=== PATIENT | male | born 1940 | race African-American/Black ===

== ENCOUNTER 2018-05-29 12:36 | Observation (INO) ==
[2018-05-29] MEDS ORDERED: SODIUM CHLORIDE 0.9% 500 ML IV STA (12:54)
[2018-05-29 13:57] LABS: Basophils % 0.1 % (0.0-0.8); Hematocrit 25.6 VOL% (42.0-52.0); Hemoglobin 8.7 GM/DL (14.0-18.0); Immature Granulocytes % 0.6 %; Immature Granulocytes Absolute 0.05 #; Lymphocytes # 1.3 10*3/uL (1.4-4.0); Lymphocytes % 15.9 % (21.2-54.2); Mean Corpuscular Hemoglobin 32 PG (27-34); Mean Corpuscular Volume 93.1 FL (87-102); Mean Platelet Volume 9.2 FL (9.6-12.0); Monocytes # 0.3 10*3/uL (0.11-0.8); Monocytes % 3.9 % (1.7-12.7); Neutrophils # 6.4 10*3/uL (1.4-7.4); Neutrophils % 79.5 % (38.7-73.9); Platelet Count 409 T/CUMM (130-400); Red Blood Count 2.75 MC/CUMM (3.8-5.5); Red Cell Distribution Width 26.5 % (9.3-17.3)
[2018-05-29 14:05] LABS: PT Patient Result 10.6 SECS; Partial Thromboplastin Time 27.1 SECS (0-40)
[2018-05-29 14:09] LABS: Barbiturates Screen,Urine Negative (Negative); Benzodiazepines Screen,Urine Negative (Negative); Cannabinoid Screen,Urine Negative (Negative); Opiate Screen,Urine Positive (Negative); Phencyclidine Screen,Urine Negative (Negative)
[2018-05-29 14:17] LABS: Apearance,Urine CLEAR (Clear); Bacteria,Urine Occasional /HPF (Few); Bilirubin,Urine Negative (Negative); Blood, Urine Negative (Negative); Glucose,Urine (UA) Negative (Negative); Ketones,Urine 5 mg/dL (Negative); Mucus,Urine Occasional /LPF (Occasional); Nitrite,Urine Positive (Negative); Protein,Urine Negative; RBC,Urine <1 /HPF (0-4); Squamous Epithelial Cell,Urine Occasional /HPF (0-10); Urine Color Yellow (Yellow); Urine Specific Gravity 1.008 (1.001-1.035); Urine Urobilinogen < 2.0 EU/DL (0.2-1.0); WBC,Urine 7 /HPF (0-6)
[2018-05-29 14:18] LABS: Alanine Aminotransferase 41 U/L (16-61); Albumin 2.4 G/DL (3.4-5.0); Alkaline Phosphatase 151 U/L (45-117); Aspartate Amino Transferase 60 U/L (0-37); Blood Urea Nitrogen 7 MG/DL (7-18); Calcium 7.6 MG/DL (8.5-10.1); Glucose 91 MG/DL (74-106); Sodium 137 MMOL/L (136-145); Total Protein 6.5 G/DL (6.4-8.3)
[2018-05-29 14:19] LABS: Osmolality,Calculated 270.8 MOS/KG (273-304); Troponin I Only 0.027 NG/ML (0.00-0.045)
[2018-05-29] MEDS ORDERED: POTASSIUM BICARB EFFERVESCENT 25 MEQ TABLET PO ONE (14:26)
[2018-05-29] MEDS ORDERED: LEVOFLOXACIN INJ 750 MG in PREMIX 1 EACH IV STA (14:26)
[2018-05-29 14:55] LABS: Anisocytosis 1+
[2018-05-29 14:56] LABS: Platelet Estimate Adequate; Stomatocytes Few
[2018-05-29] MEDS ORDERED: ONDANSETRON 4 MG/2 ML VIAL IV PRN (15:25)
[2018-05-29] MEDS ORDERED: GLUCAGON 1 MG VIAL IM PRN (15:25)
[2018-05-29] MEDS ORDERED: DEXTROSE 50% 25 GM/50 ML VIAL IV PRN (15:25)
[2018-05-29] MEDS ORDERED: NICOTINE 21 MG/24 HR PATCH TRANSDERM PRN (15:25)
[2018-05-29] MEDS ORDERED: HALOPERIDOL 5 MG/ML AMP ONE (15:43)
[2018-05-29] MEDS ORDERED: HALOPERIDOL 5 MG/ML AMP IM STA ×2 (15:59→16:47)
[2018-05-29 17:16] LABS: Thyroid Stimulating Hormone 0.346 uIU/ml (0.358-3.74)
[2018-05-29] MEDS ORDERED: POTASSIUM CHLORIDE 20 MEQ TABLET PO ONE (18:00)
[2018-05-29] MEDS: cloNIDine 0.1 MG TABLET PO SCH ×2 (18:48→21:14)
[2018-05-29] MEDS: glipiZIDE 10 MG TABLET PO SCH (18:48)
[2018-05-29] MEDS: SODIUM CHLORIDE 0.9% 1,000 ML IV SCH (18:48)
[2018-05-29] MEDS: INSULIN LISPRO 100 UNIT/ML SUBCUT SCH ×2 (18:52→21:19)
[2018-05-29] MEDS ORDERED: HALOPERIDOL 5 MG/ML AMP IV PRN (19:05)
[2018-05-29] MEDS: MEGESTROL 40 MG TABLET PO SCH (21:14)
[2018-05-29] MEDS: hydroCHLOROthiazide 12.5 MG CAPSULE PO SCH (21:15)
[2018-05-29] MEDS: DICLOFENAC 1% GEL 100 GM TUBE TOP SCH (21:19)
[2018-05-29] MEDS: POTASSIUM CHLORIDE 20 MEQ TABLET PO SCH (23:35)
[2018-05-30] MEDS: ACETAMINOPHEN 325 MG TABLET PO PRN ×2 (04:35→18:02)
[2018-05-30 04:55] LABS: Hemoglobin 9.6 GM/DL (14.0-18.0); Immature Granulocytes % 0.5 %; Immature Granulocytes Absolute 0.05 #; Lymphocytes # 1.4 10*3/uL (1.4-4.0); Lymphocytes % 15.3 % (21.2-54.2); Mean Corpuscular HGB Conc 34.3 GM/DL (32-36); Mean Corpuscular Hemoglobin 32 PG (27-34); Mean Corpuscular Volume 92.1 FL (87-102); Mean Platelet Volume 9.7 FL (9.6-12.0); Monocytes # 0.6 10*3/uL (0.11-0.8); Monocytes % 6.6 % (1.7-12.7); Neutrophils # 7.1 10*3/uL (1.4-7.4); Neutrophils % 77.6 % (38.7-73.9); Platelet Count 413 T/CUMM (130-400); Red Blood Count 3.04 MC/CUMM (3.8-5.5); Red Cell Distribution Width 25.7 % (9.3-17.3); White Blood Count 9.1 T/CUMM (4-12)
[2018-05-30 05:34] LABS: Osmolality,Calculated 263.1 MOS/KG (273-304); Potassium 4.4 MMOL/L (3.5-5.1)
[2018-05-30] MEDS ORDERED: TUBERCULIN SKIN TEST 0.1 ML SYRINGE INTRADERM ONE ×2 (08:02→09:00)
[2018-05-30] MEDS: glipiZIDE 10 MG TABLET PO SCH (08:42)
[2018-05-30] MEDS: SODIUM CHLORIDE 0.9% 1,000 ML IV SCH ×2 (08:43→18:01)
[2018-05-30] MEDS: cefTRIAXone 1,000 MG in SYRINGE 1 EACH IV SCH (08:43)
[2018-05-30] MEDS: DICLOFENAC 1% GEL 100 GM TUBE TOP SCH ×4 (08:43→21:51)
[2018-05-30] MEDS: SIMVASTATIN 80 MG TABLET PO SCH (08:44)
[2018-05-30] MEDS: DILTIAZEM CD 180 MG CAPSULE PO SCH (08:44)
[2018-05-30] MEDS: FOLIC ACID 1 MG TABLET PO SCH (08:44)
[2018-05-30] MEDS: CLOPIDOGREL 75 MG TABLET PO SCH (08:45)
[2018-05-30] MEDS: TAMSULOSIN 0.4 MG CAPSULE PO SCH (08:45)
[2018-05-30] MEDS: hydroCHLOROthiazide 12.5 MG CAPSULE PO SCH ×2 (08:45→21:49)
[2018-05-30] MEDS: cloNIDine 0.1 MG TABLET PO SCH ×4 (08:45→21:49)
[2018-05-30] MEDS: POTASSIUM CHLORIDE 20 MEQ TABLET PO SCH (08:51)
[2018-05-30] MEDS: MEGESTROL 40 MG TABLET PO SCH ×2 (08:54→21:49)
[2018-05-30] MEDS: INSULIN LISPRO 100 UNIT/ML SUBCUT SCH ×4 (09:41→20:42)
[2018-05-30] MEDS ORDERED: HALOPERIDOL 5 MG/ML AMP IM PRN (12:30)
[2018-05-31] MEDS: SODIUM CHLORIDE 0.9% 1,000 ML IV SCH ×2 (04:03→14:01)
[2018-05-31] MEDS: CLOPIDOGREL 75 MG TABLET PO SCH (08:29)
[2018-05-31] MEDS: DILTIAZEM CD 180 MG CAPSULE PO SCH (08:29)
[2018-05-31] MEDS: MEGESTROL 40 MG TABLET PO SCH ×2 (08:30→21:21)
[2018-05-31] MEDS: cefTRIAXone 1,000 MG in SYRINGE 1 EACH IV SCH (08:31)
[2018-05-31] MEDS: cloNIDine 0.1 MG TABLET PO SCH ×4 (08:31→21:20)
[2018-05-31] MEDS: hydroCHLOROthiazide 12.5 MG CAPSULE PO SCH ×2 (08:31→21:20)
[2018-05-31] MEDS: FOLIC ACID 1 MG TABLET PO SCH (08:31)
[2018-05-31] MEDS: TAMSULOSIN 0.4 MG CAPSULE PO SCH (08:31)
[2018-05-31] MEDS: SIMVASTATIN 80 MG TABLET PO SCH (08:31)
[2018-05-31] MEDS: INSULIN LISPRO 100 UNIT/ML SUBCUT SCH ×4 (09:07→21:21)
[2018-05-31] MEDS: DICLOFENAC 1% GEL 100 GM TUBE TOP SCH ×4 (09:30→21:26)
[2018-05-31] MEDS: SULFAMETHOX/TRIMETHOPRIM 800-160 MG TABLET PO SCH ×2 (12:54→22:43)
[2018-06-01] MEDS: SODIUM CHLORIDE 0.9% 1,000 ML IV SCH ×2 (01:08→14:46)
[2018-06-01] MEDS: SULFAMETHOX/TRIMETHOPRIM 800-160 MG TABLET PO SCH (09:01)
[2018-06-01] MEDS: CLOPIDOGREL 75 MG TABLET PO SCH (09:01)
[2018-06-01] MEDS: TAMSULOSIN 0.4 MG CAPSULE PO SCH (09:01)
[2018-06-01] MEDS: SIMVASTATIN 80 MG TABLET PO SCH (09:01)
[2018-06-01] MEDS: MEGESTROL 40 MG TABLET PO SCH (09:03)
[2018-06-01] MEDS: cloNIDine 0.1 MG TABLET PO SCH ×2 (09:04→14:47)
[2018-06-01] MEDS: INSULIN LISPRO 100 UNIT/ML SUBCUT SCH ×2 (09:04→13:39)
[2018-06-01] MEDS: FOLIC ACID 1 MG TABLET PO SCH (09:04)
[2018-06-01] MEDS: DICLOFENAC 1% GEL 100 GM TUBE TOP SCH ×2 (09:04→14:47)
[2018-06-01] MEDS: DILTIAZEM CD 180 MG CAPSULE PO SCH (09:29)
[2018-06-01] MEDS: hydroCHLOROthiazide 12.5 MG CAPSULE PO SCH (09:36)
[2018-06-01 12:48] VITALS: BP 116/66
== END 2018-06-01 14:45 | disposition home or self-care (01) ==
LOC: EDBD → EDUNIT# → N.EDINP 12:36 → N.ED 12:36 → N.2E 17:42
PROVIDERS: ADMIT Internal Medicine; ATTEND Internal Medicine

== ENCOUNTER 2020-08-29 22:40 | Observation (INO) ==
[2020-08-30] MEDS ORDERED: ALBUTEROL 2.5 MG/3 ML NEB RESP TX PRN (01:30)
[2020-08-30] MEDS ORDERED: INSULIN REGULAR 100 UNIT/ML SUBCUT ONE (01:36)
[2020-08-30] MEDS ORDERED: ACETAMINOPHEN 325 MG TABLET PO PRN (01:41)
[2020-08-30] MEDS ORDERED: ALBUTEROL/IPRATROPIUM 3 ML NEB RESP TX PRN (01:41)
[2020-08-30] MEDS: SODIUM CHLORIDE 0.9% 1,000 ML IV SCH ×3 (02:24→15:50)
[2020-08-30 02:37] LABS: Basophils % 0.2 % (0.0-0.8); Eosinophils # 0.1 10*3/uL (0.0-0.87); Eosinophils % 0.6 % (0.00-10.9); Hematocrit 38.6 VOL% (42.0-52.0); Hemoglobin 12.4 GM/DL (14.0-18.0); Immature Granulocytes % 0.7 %; Immature Granulocytes Absolute 0.07 #; Lymphocytes # 3.7 10*3/uL (1.4-4.0); Mean Corpuscular HGB Conc 32.1 GM/DL (32-36); Mean Corpuscular Volume 82.3 FL (87-102); Neutrophils % 55.5 % (38.7-73.9); Platelet Count 212 T/CUMM (130-400); Red Blood Count 4.69 MC/CUMM (3.8-5.5); Red Cell Distribution Width 17.7 % (9.3-17.3); White Blood Count 10.1 T/CUMM (4-12)
[2020-08-30] MEDS ORDERED: HEPARIN 5,000 UNIT/1 ML VIAL IV PRN (02:55)
[2020-08-30] MEDS ORDERED: HEPARIN DRIP 25,000 UNITS/500 ML PREMIX IV SCH (03:00)
[2020-08-30 03:08] LABS: Albumin 3.2 G/DL (3.4-5.0); Bilirubin,Total 0.8 MG/DL (0.2-1.0); Calcium 9.2 MG/DL (8.5-10.1); Osmolality,Calculated 282.7 MOS/KG (273-304); Risk Ratio 3.21; Thyroid Stimulating Hormone 1.52 uIU/ml (0.358-3.74); Total Protein 6.7 G/DL (6.4-8.3); VLDL CHOLESTEROL 44.4 MG/DL
[2020-08-30] MEDS ORDERED: GLUCAGON 1 MG VIAL IM PRN (03:16)
[2020-08-30] MEDS ORDERED: DEXTROSE 50% 25 GM/50 ML VIAL IV PRN (03:16)
[2020-08-30] MEDS: hydrALAZINE 20 MG/1 ML VIAL IV PRN ×2 (04:26→12:11)
[2020-08-30] MEDS: INSULIN REGULAR 100 UNIT/ML SUBCUT SCH ×3 (06:17→19:58)
[2020-08-30 07:05] LABS: Bacteria,Urine Many /HPF (Few); Bilirubin,Urine Negative (Negative); Blood, Urine Small mg/dL (Negative); Glucose,Urine (UA) Negative (Negative); Hyaline Casts,Urine 3 /LPF (0-3); Ketones,Urine Negative (Negative); Mucus,Urine Occasional /LPF (Occasional); Nitrite,Urine Negative (Negative); Protein,Urine Negative; RBC,Urine 11 /HPF (0-4); Squamous Epithelial Cell,Urine Occasional /HPF (0-10); Urine Appearance Slightly Hazy (Clear); Urine Color Yellow (Yellow); Urine Specific Gravity 1.012 (1.001-1.035); Urine Urobilinogen < 2.0 EU/DL (0.2-1.0); WBC,Urine 102 /HPF (0-6)
[2020-08-30] MEDS ORDERED: POLYETHYLENE GLYCOL POWDER 17 GM PACK PO SCH (09:00)
[2020-08-30] MEDS ORDERED: DILTIAZEM CD 120 MG CAPSULE PO SCH (09:00)
[2020-08-30] MEDS ORDERED: POLYETHYLENE GLYCOL POWDER 255 GM BOTTLE PO SCH (09:00)
[2020-08-30] MEDS: NITROGLYCERIN 0.4 MG/HR PATCH TRANSDERM SCH (09:35)
[2020-08-30] MEDS: BUDESONIDE/FORMOTEROL 160-4.5 INHALER 6 GM INH SCH (10:10)
[2020-08-30] MEDS ORDERED: CLOPIDOGREL 75 MG TABLET PO SCH (10:11)
[2020-08-30] MEDS: CLOPIDOGREL 75 MG TABLET PO SCH (10:46)
[2020-08-30] MEDS: FINASTERIDE 5 MG TABLET PO SCH (13:44)
[2020-08-30] MEDS: PYRIDOXINE 100 MG TABLET PO SCH (13:44)
[2020-08-30] MEDS: POTASSIUM CHLORIDE 10 MEQ TABLET PO SCH ×2 (13:44→21:11)
[2020-08-30] MEDS: PANTOPRAZOLE 40 MG TABLET PO SCH (13:44)
[2020-08-30 13:45] LABS: CKMB % 7.2 %
[2020-08-30] MEDS: amLODIPine 5 MG TABLET PO SCH (13:45)
[2020-08-30] MEDS: ASPIRIN EC 81 MG TABLET PO SCH (13:45)
[2020-08-30] MEDS: MEMANTINE 10 MG TABLET PO SCH ×2 (13:45→21:11)
[2020-08-30] MEDS: FOLIC ACID 1 MG TABLET PO SCH (13:45)
[2020-08-30] MEDS: THIAMINE 100 MG TABLET PO SCH (13:45)
[2020-08-30] MEDS: TAMSULOSIN 0.4 MG CAPSULE PO SCH (13:45)
[2020-08-30 13:51] LABS: Troponin I 2.61 NG/ML (0.00-0.045)
[2020-08-30] MEDS ORDERED: ROSUVASTATIN 20 MG TABLET PO SCH (21:00)
[2020-08-30] MEDS ORDERED: MELATONIN 3 MG TABLET PO SCH (21:00)
[2020-08-30] MEDS ORDERED: DONEPEZIL 10 MG TABLET PO SCH (21:00)
[2020-08-31] MEDS ORDERED: CLOPIDOGREL 75 MG TABLET PO SCH (01:38)
[2020-08-31] MEDS: INSULIN REGULAR 100 UNIT/ML SUBCUT SCH ×3 (02:08→14:17)
[2020-08-31] MEDS: SODIUM CHLORIDE 0.9% 1,000 ML IV SCH (06:34)
[2020-08-31 06:43] LABS: Basophils % 0.4 % (0.0-0.8); Eosinophils # 0.1 10*3/uL (0.0-0.87); Eosinophils % 1.1 % (0.00-10.9); Hematocrit 34.8 VOL% (42.0-52.0); Hemoglobin 11.4 GM/DL (14.0-18.0); Immature Granulocytes % 0.6 %; Immature Granulocytes Absolute 0.04 #; Lymphocytes # 2.9 10*3/uL (1.4-4.0); Lymphocytes % 40.1 % (21.2-54.2); Mean Corpuscular HGB Conc 32.8 GM/DL (32-36); Mean Corpuscular Volume 81.5 FL (87-102); Mean Platelet Volume 10.7 FL (9.6-12.0); Monocytes % 6.6 % (1.7-12.7); Neutrophils % 51.2 % (38.7-73.9); Platelet Count 187 T/CUMM (130-400); Red Blood Count 4.27 MC/CUMM (3.8-5.5); Red Cell Distribution Width 17.3 % (9.3-17.3); White Blood Count 7.1 T/CUMM (4-12)
[2020-08-31 07:11] LABS: Calcium 8.6 MG/DL (8.5-10.1); Osmolality,Calculated 277.5 MOS/KG (273-304)
[2020-08-31] MEDS: FINASTERIDE 5 MG TABLET PO SCH (09:32)
[2020-08-31] MEDS: FOLIC ACID 1 MG TABLET PO SCH (09:32)
[2020-08-31] MEDS: ASPIRIN EC 81 MG TABLET PO SCH (09:32)
[2020-08-31] MEDS: POTASSIUM CHLORIDE 10 MEQ TABLET PO SCH (09:32)
[2020-08-31] MEDS: THIAMINE 100 MG TABLET PO SCH (09:32)
[2020-08-31] MEDS: MEMANTINE 10 MG TABLET PO SCH (09:32)
[2020-08-31] MEDS: PANTOPRAZOLE 40 MG TABLET PO SCH (09:32)
[2020-08-31] MEDS: TAMSULOSIN 0.4 MG CAPSULE PO SCH (09:32)
[2020-08-31] MEDS: CLOPIDOGREL 75 MG TABLET PO SCH (09:32)
[2020-08-31] MEDS: amLODIPine 5 MG TABLET PO SCH (09:32)
[2020-08-31] MEDS ORDERED: FUROSEMIDE 20 MG/2 ML VIAL IV ONE (10:30)
[2020-08-31] MEDS ORDERED: cefTRIAXone 1,000 MG in SYRINGE 1 EACH IV SCH (12:00)
[2020-08-31] MEDS: PYRIDOXINE 100 MG TABLET PO SCH ×2 (13:43→13:48)
[2020-08-31] MEDS: BUDESONIDE/FORMOTEROL 160-4.5 INHALER 6 GM INH SCH ×2 (13:44→13:48)
[2020-08-31] MEDS: NITROGLYCERIN 0.4 MG/HR PATCH TRANSDERM SCH (13:47)
[2020-08-31] MEDS ORDERED: amLODIPine 5 MG TABLET PO ONE (14:05)
[2020-08-31] MEDS ORDERED: ISOSORBIDE MONONITRATE 30 MG TABLET PO SCH (14:30)
[2020-08-31 14:56] VITALS: BP 130/74
[2020-09-01] MEDS ORDERED: amLODIPine 10 MG TABLET PO SCH (09:00)
== END 2020-08-31 15:30 ==
LOC: N.ICU 08-30 00:25 → SUATTDRO 08-30 00:25 → INTOOBSV 08-30 00:25 → N.TELES 08-30 15:52
PROVIDERS: ADMIT Internal Medicine; ATTEND Internal Medicine